=== PATIENT | female | born 1935 | race Caucasian/White ===

== ENCOUNTER → 2017-03-20 | Outpatient (CLI) | payer OTHER | END | disposition home or self-care (01) | LOC: PCVCCLINIC 12:07 | PROVIDERS: ATTEND Internal Medicine | DX: I34.0 Nonrheumatic mitral (valve) insufficiency (principal); I42.9 Cardiomyopathy, unspecified; G62.9 Polyneuropathy, unspecified; C85.92 Non-Hodgkin lymphoma, unspecified, intrathoracic lymph nodes; E78.5 Hyperlipidemia, unspecified | CPT/HCPCS: 80061; 93005; G0463 ==

== ENCOUNTER → 2017-10-01 | Outpatient (CLI) | payer OTHER | END | disposition home or self-care (01) | LOC: PCVCCLINIC 11:20 | PROVIDERS: ATTEND Internal Medicine | DX: I42.7 Cardiomyopathy due to drug and external agent (principal); I34.0 Nonrheumatic mitral (valve) insufficiency; G62.0 Drug-induced polyneuropathy; E78.5 Hyperlipidemia, unspecified; C85.92 Non-Hodgkin lymphoma, unspecified, intrathoracic lymph nodes; Z79.899 Other long term (current) drug therapy | CPT/HCPCS: 80061; 93005; G0463 ==

== ENCOUNTER → 2019-04-16 | Outpatient (CLI) | payer MEDICARE ==
--- NOTE | 2019-04-16 12:48 | PCVCIMAG ---
APPROVED REPORT Study performed: 04/16/2019 10:04:39 EXAM: Comprehensive 2D, Doppler, and color-flow Echocardiogram Patient Location: Echo lab BSA: 1.58 HR: 76 bpmBP: 118/70 mmHg Rhythm: NSR Other Information Study Quality: Good Risk Factors: Cardiac Risk Factors: HTN, Hyperlipidemia Indications Cardiomyopathy 2D Dimensions IVSd: 7.63 (7-11mm)LVOT Diam: 17.91 (18-24mm) LVDd: 42.72 mm PWd: 7.73 (7-11mm)Ascending Ao: 25.00 (22-36mm) LVDs: 36.44 (25-40mm) Left Atrium: 33.02 (27-40mm) Aortic Root: 28.33 mm LV Single Plane 4CH: 46.35 % LV Single Plane 2CH: 45.90 % Biplane EF: 48.5 % Volumes Left Atrial Volume (Systole) Single Plane 4CH: 66.34 mLSingle Plane 2CH: 79.77 mL LA ESV Index: 49.00 mL/m2 Aortic Valve AoV Peak Yonatan.: 1.21 m/s AO Peak Gr.: 5.82 mmHgLVOT Max P.53 mmHg LVOT Max V: 0.80 m/s MICHAEL Vmax: 1.66 cm2 Mitral Valve E/A Ratio: 1.8 MV Decel. Time: 145.90 ms MV E Max Yonatan.: 1.15 m/s MV A Yonatan.: 0.65 m/s TDI E/Lateral E': 12.78E/Medial E': 16.43 Medial E' Yonatan.: 0.07 m/s Lateral E' Yonatan.: 0.09 m/s Pulmonary Valve PV Peak Gr.: 1.11 mmHg Pulmonary Vein P Vein S: 0.63 m/sP Vein A: 0.43 m/s P Vein D: 0.56 m/sP Vein A Dur.: 96.9 msec P Vein S/D Ratio: 1.13 Tricuspid Valve TR Peak Yonatan.: 2.79 m/s TR Peak Gr.: 31.14 mmHg Left Ventricle The left ventricle is normal size. There is normal LV segmental wall motion. There is normal left ventricular wall thickness. Left ventricular systolic function is mildly decreased. LVEF is 45-50%. Moderate diastolic dysfunction is present (pseudonormal filling). Right Ventricle The right ventricle is normal size. The right ventricular systolic function is normal. Atria Left atrium is severely dilated. Right atrium is severely dilated. Aortic Valve The aortic valve is mildly sclerotic. No aortic regurgitation is present. There is no aortic valvular stenosis. Mitral Valve The mitral valve is normal in structure. Moderate mitral regurgitation. No evidence of mitral valve stenosis. Tricuspid Valve The tricuspid valve is normal in structure. Moderate tricuspid regurgitation. Pulmonary artery pressure is 40mmHg. Pulmonic Valve The pulmonary valve is normal in structure. There is no pulmonic valvular regurgitation. Great Vessels The aortic root is normal in size. IVC is normal in size and collapses >50% with inspiration. Pericardium There is no pericardial effusion. <Conclusion> Left ventricular systolic function is mildly decreased. LVEF is 45-50%. Moderate diastolic dysfunction is present (pseudonormal filling). Both atria are severely dilated. The aortic valve is mildly sclerotic. No aortic regurgitation or stenosis. The mitral valve is normal in structure. Moderate to moderately severe mitral regurgitation. Moderate tricuspid regurgitation. Pulmonary artery pressure of 40mmHg. There is no pericardial effusion.
== END | disposition home or self-care (01) ==
LOC: PCVCIMAG 09:43
PROVIDERS: ATTEND Internal Medicine
DX: I08.1 Rheumatic disorders of both mitral and tricuspid valves (principal); I42.7 Cardiomyopathy due to drug and external agent; G62.0 Drug-induced polyneuropathy; E78.5 Hyperlipidemia, unspecified; C85.92 Non-Hodgkin lymphoma, unspecified, intrathoracic lymph nodes
CPT/HCPCS: 36415; 80061; 93005; 93306; G0463

== ENCOUNTER → 2019-10-21 | Outpatient (CLI) | payer MEDICARE | END | disposition home or self-care (01) | LOC: PCVCCLINIC 10:30 | PROVIDERS: ATTEND Internal Medicine | DX: I42.7 Cardiomyopathy due to drug and external agent (principal); I34.0 Nonrheumatic mitral (valve) insufficiency; G62.0 Drug-induced polyneuropathy; E78.5 Hyperlipidemia, unspecified; C85.92 Non-Hodgkin lymphoma, unspecified, intrathoracic lymph nodes; R94.31 Abnormal electrocardiogram [ECG] [EKG]; Z79.899 Other long term (current) drug therapy; Z88.8 Allergy status to other drugs, medicaments and biological substances | CPT/HCPCS: 36415; 80061; 93005; G0463 ==